=== PATIENT | male | born 1935 | race Caucasian/White ===

== ENCOUNTER 2017-09-20 18:25 | Emergency (ER) | payer MEDICARE, BC ==
[2017-09-20] MEDS ORDERED: Lidocaine 1% 20 ML MDV ONE (19:26)
[2017-09-20] MEDS ORDERED: Bacitracin Zinc 1 Packet ONE (19:45)
--- NOTE | 2017-09-20 20:10 | RAD ---
CHEST PA AND LATERAL: History: 82-year-old male with left shoulder pain. Comparison: 12-17-11 FINDINGS: Atherosclerosis of the aorta. No confluent pneumonia, overt edema, or pleural effusion. IMPRESSION: No acute intrathoracic disease. Atherosclerosis of the aorta with ectasia. Stable from prior study. POS: DODIE
--- NOTE | 2017-09-20 20:11 | RAD ---
LEFT SHOULDER THREE VIEWS: History: 82-year-old male with left shoulder pain following an injury. FINDINGS: AC joint arthrosis changes are noted, somewhat narrowed acromial humeral space suggesting chronic rot ator cuff injury. No acute fracture or dislocation. IMPRESSION: Degenerative changes without fracture or dislocation. POS: DODIE
--- NOTE | 2017-09-20 20:13 | RAD ---
LEFT HAND THREE VIEWS: History: 82-year-old male with left hand pain following an injury. FINDINGS: Arthrosis changes are noted of the hand and wrist including the trapezium first metacarpal joint with some extensive hypertrophic osteophytosis. No evidence for acute fracture or dislocation. IMPRESSION: Arthrosis and degenerative changes without acute fracture or dislocation. POS: MARGIE
== END 2017-09-20 19:56 | disposition home or self-care (01) ==
LOC: SCSER 18:25
DX: S61.412A Laceration without foreign body of left hand, initial encounter (principal); S20.219A Contusion of unspecified front wall of thorax, initial encounter; E78.5 Hyperlipidemia, unspecified; D89.89 Other specified disorders involving the immune mechanism, not elsewhere classified; W17.89XA Other fall from one level to another, initial encounter
CPT/HCPCS: 12002; 71020; J2001

== ENCOUNTER 2017-09-28 17:36 | Emergency (ER) | payer MEDICARE, BC | END 2017-09-28 18:21 | disposition home or self-care (01) | LOC: SCSER 17:36 | DX: S61.412D Laceration without foreign body of left hand, subsequent encounter (principal); E78.5 Hyperlipidemia, unspecified; I77.6 Arteritis, unspecified ==

== ENCOUNTER 2017-10-02 16:24 | Emergency (ER) | payer MEDICARE, BC | END 2017-10-02 17:17 | disposition home or self-care (01) | LOC: SCSER 16:24 | DX: S61.412D Laceration without foreign body of left hand, subsequent encounter (principal); E78.5 Hyperlipidemia, unspecified; W18.30XD Fall on same level, unspecified, subsequent encounter ==

== ENCOUNTER 2019-03-28 12:56 | Outpatient (CLI) | payer MEDICARE, BC ==
--- NOTE | 2019-03-28 14:07 | RAD ---
Exam: Chest one view HISTORY:Preoperative exam for Comparison: 02/01/2019 FINDINGS: Cardiac silhouette:Normal heart size. Aorta: Elongation of the thoracic aorta. Pulmonary vessels: Normal Costophrenic angles: Clear LUNGS: No masses or consolidation. Pneumothorax: None Osseous abnormalities: None IMPRESSION: No acute cardiopulmonary process.
[2019-03-28 14:40] LABS: #Eosinphils 0.1 thou/uL (0.0-0.7); #Lymphocytes 1.4 thou/uL (1.20-3.40); #Monocytes 0.6 thou/uL (0.11-0.59); #Neutrophils 4.2 thou/uL (1.40-6.50); %Basophils 0.5 % (0.0-1.0); %Eosinophils 1.9 % (0.0-10.0); %Lymphocytes 22.7 % (21.0-51.0); Hemoglobin 13.6 g/dL (14.0-18.0); Mean Corpuscular HGB CONC 33.4 g/dL (32.0-36.0); Platelet Count 219 thou/uL (130-400); RBC Distribution Width 11.9 % (11.5-14.5); Red Blood Cell (RBC) Count 4.53 mill/uL (4.70-6.10); White Blood Cell (WBC) Count 6.4 thou/uL (4.8-10.8)
[2019-03-28 15:05] LABS: ALT (SGPT) 13 U/L (8-55); AST (SGOT) 15 U/L (5-34); Albumin 4.5 g/dL (3.4-4.8); Alkaline Phosphatase 44 U/L (40-150); Anion Gap 13 mmol/L (10-20); BUN (Urea Nitrogen) 15 mg/dL (8.4-25.7); Bilirubin, Total 0.6 mg/dL (0.2-1.2); Calc. Creatinine Clearance 0 mL/min (70-130); Calcium 10.3 mg/dL (7.8-10.44); Carbon Dioxide 25 mmol/L (23-31); Chloride 106 mmol/L (98-107); Estimated GFR-MDRD 57; Globulin 2.6 g/dL (2.4-3.5); Glucose 100 mg/dL (83-110); Potassium 4.6 mmol/L (3.5-5.1); Protein, Total 7.1 g/dL (5.8-8.1); Sodium 139 mmol/L (136-145)
== END 2019-03-28 12:57 | disposition home or self-care (01) ==
LOC: LABBT 12:56
PROVIDERS: ATTEND Internal Medicine Cardiovascular Disease
DX: Z01.818 Encounter for other preprocedural examination (principal); I35.0 Nonrheumatic aortic (valve) stenosis; R94.39 Abnormal result of other cardiovascular function study
CPT/HCPCS: 71045; 80053; 85025; 93005; 93010

== ENCOUNTER 2019-04-05 05:46 | Inpatient (IN) | payer MEDICARE, BC ==
[2019-04-05] MEDS ORDERED: Heparin 10,000 UNITS/1 ML VIAL ONE (06:41)
[2019-04-05] MEDS ORDERED: Lidocaine 1% (PF) 30 ML VIAL ONE ×2 (06:42→07:35)
[2019-04-05] MEDS ORDERED: Fentanyl 100 MCG/2 ML VIAL ONE (07:15)
[2019-04-05] MEDS ORDERED: Midazolam HCl 2 mg/2 ml Vial ONE (07:15)
[2019-04-05] MEDS ORDERED: Protamine Sulfate 50 MG/5 ML VIAL ONE (07:20)
[2019-04-05] MEDS ORDERED: Sodium Chloride 0.9% 200 ML IV PRN (08:55)
[2019-04-05] MEDS ORDERED: Nitroglycerin 0.4 MG TAB (25 Tab Bottle) SL PRN (08:55)
[2019-04-05] MEDS ORDERED: Sodium Chloride 0.9% 1,000 ML IV SCH (09:00)
[2019-04-05] MEDS ORDERED: Iopamidol 370 76% 100 ML VIAL ONE (10:15)
[2019-04-05] MEDS ORDERED: Iopamidol 370 76% 50 ML VIAL FS ONE (10:15)
[2019-04-05] MEDS ORDERED: Acetaminophen 500 MG TAB ONE (10:17)
[2019-04-05] MEDS ORDERED: Ondansetron PF 4 MG/2 ML Vial ONE (10:58)
[2019-04-05] MEDS ORDERED: Acetaminophen 500 MG TAB PO PRN ×2 (11:14→11:15)
[2019-04-05] MEDS ORDERED: Ondansetron PF 4 MG/2 ML Vial IVP SCH (11:30)
[2019-04-05] MEDS: Ezetimibe 10 MG TAB PO SCH (19:12)
[2019-04-05] MEDS: Cyanocobalamin (Vitamin B-12) 1,000 MCG TAB PO SCH (19:12)
[2019-04-05] MEDS: Fluticasone Propionate Nasal Spray 16 gm Bottle NASAL SCH (19:12)
[2019-04-05] MEDS: Aspirin 81 mg Enteric Coated Tablet PO SCH (19:12)
[2019-04-05] MEDS: Carvedilol 3.125 MG TAB PO SCH (19:14)
--- NOTE | 2019-04-06 00:52 | HP ---
May also at times go by H.T. HISTORY: Mr. Barr is an 84-year-old white male, who is coming for cardiac catheterization. He was initially seen in November 2004 when he presented with chest discomfort. At that time, he was on Zocor 40 at bedtime for hypercholesterolemia. Echocardiogram revealed ejection fraction of 50% to 55%. He underwent Cardiolite treadmill testing exercised for 5 minutes and there were no ST-segment changes. Cardiolite revealed no evidence of ischemia. He was seen again in 2009. An echocardiogram revealed ejection fraction of 30% to 35% with evidence for diastolic dysfunction. Repeat echo in July 2011 revealed that his ejection fraction had improved to 60% to 65%. He also had mild aortic stenosis with a peak gradient of 23 mmHg, mean gradient was 14 mmHg. He also had history of hypercholesterolemia and statin drug was stopped due to the thought that this caused him to have lower extremity vasculitis. He has never been back on the statin since that time. He is continued to be followed for his aortic stenosis with periodic echos and his gradient has consistently increased. However, he has been relatively asymptomatic, except for lower extremity edema, which is attributed to vasculitis. He has ultimately been placed on Repatha first prescribed in August 2018, however, I do not think he was able to get it until November 2018. This has brought his LDL down from approximately 150 to 56. He was seen again on February 27, 2019, for preop evaluation for the left shoulder surgery by Dr. Tristan. Echocardiogram revealed ejection fraction of 50% to 55 % with mild mitral regurgitation, evidence for diastolic dysfunction, severe aortic stenosis with a peak gradient of 124, mean gradient of 84, aortic valve area of 0.69 sq cm, moderate aortic regurgitation and mild tricuspid regurgitation. He underwent cardiac PET scan which revealed mild proximal to distal inferior wall fixed defect, likely needed to undergo cardiac catheterization for better assessment of his aortic valve. Risks of catheterization have discussed including , myocardial infarction, dye reaction, vascular injury, CVA, transfusion, limb loss, renal loss, etc. He agrees to proceed. 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 OPERATIONS: Left hip replacement. SOCIAL HISTORY: He does not smoke. He occasionally drinks wine. 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 REVIEW OF SYSTEMS: Otherwise, unremarkable. PHYSICAL EXAMINATION: VITAL SIGNS: 139/61 and pulse of 64. HEENT: PERRL. NECK: Supple. CHEST: Clear. CARDIAC: S1 and S2 normal without any S3 or S4. There is a 3/6 systolic murmur heard at the left sternal border. ABDOMEN: Normal bowel sounds without tenderness or organomegaly. EXTREMITIES: Reveal 1+ pretibial edema. NEUROLOGIC: Grossly intact. LABORATORIES: Pending. IMPRESSION: 1. Preoperative cardiovascular examination for left shoulder surgery. 2. Abnormal stress test with mild proximal and distal inferior wall ischemia. 3. Evidence of cardiomyopathy in 2009 which appeared to have resolved. 4. Severe aortic stenosis. 5. Moderate aortic insufficiency. 6. Diastolic dysfunction. 7. Hypercholesterolemia, which has dramatically improved and is well controlled with Repatha and Zetia. 8. Hypertension. 9. Lower extremity vasculitis, felt to be due to statins. PLAN: Patient will undergo cardiac catheterization and indicated procedures. He agrees to proceed. I am quite concerned about his severe aortic stenosis with peak gradient 128 mmHg. However, he is relatively asymptomatic, except for lower extremity edema. Job ID: [id number] [facility]
[2019-04-06 06:08] LABS: Anion Gap 8 mmol/L (10-20); BUN (Urea Nitrogen) 16 mg/dL (8.4-25.7); Calc. Creatinine Clearance 64 mL/min (70-130); Calcium 9.5 mg/dL (7.8-10.44); Carbon Dioxide 27 mmol/L (23-31); Chloride 108 mmol/L (98-107); Estimated GFR-MDRD 64; Glucose 89 mg/dL (83-110); Potassium 4.2 mmol/L (3.5-5.1); Sodium 139 mmol/L (136-145)
[2019-04-06] MEDS ORDERED: Tamsulosin HCl 0.4 MG CAP PO SCH (09:00)
[2019-04-06] MEDS: predniSONE 5 MG TAB PO SCH (10:33)
[2019-04-06] MEDS: Carvedilol 3.125 MG TAB PO SCH ×2 (10:33→17:30)
[2019-04-06] MEDS: Aspirin 81 mg Enteric Coated Tablet PO SCH (10:34)
[2019-04-06] MEDS: Cyanocobalamin (Vitamin B-12) 1,000 MCG TAB PO SCH (10:34)
[2019-04-06] MEDS: Ezetimibe 10 MG TAB PO SCH (10:34)
[2019-04-06] MEDS: Fluticasone Propionate Nasal Spray 16 gm Bottle NASAL SCH (10:35)
[2019-04-06] MEDS ORDERED: Communication Order-Pharmacy FS SCH (15:20)
[2019-04-06 15:50] LABS: PTT 26.6 SEC (22.9-36.1); Prothrombin Time 12.8 SEC (12.0-14.7)
--- NOTE | 2019-04-06 15:59 | CT ---
CTA CHEST WITH CONTRAST: HISTORY: Assess aorta for aortic valve repair. COMPARISON: None. TECHNIQUE: Multiple contiguous axial images were obtained in a CTA chest with contrast, and 3D sagittal and damon nal MIP reformats were performed. FINDINGS: The heart is normal in size. There are calcifications in the coronary arteries and aortic valve. Th e aorta is normal in caliber. The sinus of Valsalva measures 3.8 cm in greatest dimension. The asc ending aorta measures 4 cm in greatest dimension, at the level of the main pulmonary artery. The victor hugo cending aorta is normal in caliber. No hilar or mediastinal lymphadenopathy is seen. No pneumothorax or pleural effusion is seen. No focal infiltrates are seen in the lungs. No suspici ous pulmonary nodules are present. Degenerative changes are seen in the spine. The visualized subdiaphragmatic structures are unremarka ble. IMPRESSION: Normal caliber aorta with heavily calcified aortic valve. POS: [facility]
--- NOTE | 2019-04-06 22:05 | CON ---
DATE OF CONSULTATION: 04/06/2019 REASON FOR CONSULTATION: Evaluate the patient for AVR, CABG. HISTORY OF PRESENT ILLNESS: Mr. Barr is an 84-year-old gentleman who was being cleared for a left shoulder surgery by Dr. Lewis. He has a longstanding history of a murmur. His echocardiogram shows preserved left ventricular function at this time. He had a gradient of over 100. He underwent cardiac catheterization, which shows moderate to severe right coronary stenosis with multifocal lesions. I have been asked to see him for AVR with a bioprosthetic valve and CABG with a single vein graft to his distal right coronary artery. PAST MEDICAL HISTORY: 1. History of venous insufficiency. 2. Vasculitis related to statin use. 3. Dyslipidemia. 4. Neuropathy in his feet. 5. Severe aortic stenosis. 6. Nonischemic cardiomyopathy, which has resolved. 7. Hypertension. PAST SURGICAL HISTORY: Left hip replacement. SOCIAL HISTORY: He does not use tobacco. Occasionally drinks wine. 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 REVIEW OF SYSTEMS: A 10-point review of systems is performed, is negative except as above. PHYSICAL EXAMINATION: GENERAL: Well-developed, well-nourished gentleman, resting comfortably on the telemetry unit. VITAL SIGNS: His height is 6 feet, weight is 198 pounds. His pulse is 68 and regular. Blood pressure is 139/75. HEENT: Sclerae are nonicteric. Pupils are equal and round bilaterally. NECK: Supple without bruit. CHEST: Clear bilaterally. HEART: Rhythm is regular. He has a high-pitched systolic ejection murmur heard throughout his precordium. ABDOMEN: Soft and nontender. EXTREMITIES: No cyanosis, clubbing, or edema. VASCULAR: He has palpable carotid, radial femoral, popliteal, dorsalis pedis, and posterior tibial pulses bilaterally. VENOUS: There are no venous varicosities or venous stasis change. PSYCHIATRIC: He is awake, alert, and oriented to person, place, and time. LABORATORY DATA: Of note, hemoglobin 13.6, platelet count 219,000. Potassium is 3.9, creatinine is 1.09. Chest x-ray shows no dominant lung mass. We have CT'ed his chest which shows annulus diameter of approximately 25 with heavily calcified aortic valve. His aorta measures 4.1 cm in maximal diameter with minimal calcium in his aorta. The proximal right and left coronary arteries are heavily calcified. ASSESSMENT AND PLAN: Severe aortic stenosis, single-vessel coronary artery disease. I have discussed aortic valve replacement with bioprosthetic valve and coronary artery bypass grafting with a single vein graft to his distal right or proximal PDA. He is agreeable to proceed. Risks, benefits, and options have been outlined. We will make plans for surgery tomorrow. Job ID: [id number]
[2019-04-07] MEDS: Carvedilol 3.125 MG TAB PO SCH (05:17)
[2019-04-07] MEDS ORDERED: Albumin 5% 500 ML ONE ×2 (06:41→12:51)
[2019-04-07] MEDS ORDERED: Bupivacaine HCl 0.5%/Epinephrine 1:200,000/PF 30 ml Vial ONE (06:41)
[2019-04-07] MEDS ORDERED: Dexamethasone 4 mg/ml Vial ONE (06:41)
[2019-04-07] MEDS ORDERED: Hydrocortisone Sod Succ/PF 100 mg/2 ml Vial ONE (09:17)
[2019-04-07] MEDS ORDERED: Fentanyl 250 MCG/5 ML VIAL ONE (09:17)
[2019-04-07] MEDS ORDERED: Midazolam HCl 5 mg/5 ml Vial ONE (09:17)
[2019-04-07] MEDS ORDERED: Phenylephrine HCL 10 MG/ML VIAL ONE ×2 (09:17→12:51)
[2019-04-07] MEDS ORDERED: Vancomycin HCl 1.5 GM in Sodium Chloride 0.9% 250 ML 300 ML IVPB SCH (09:30)
[2019-04-07] MEDS ORDERED: CEFAZOLIN 1 GM VIAL SLOW IVP SCH (10:00)
[2019-04-07] MEDS ORDERED: Heparin 10,000 UNITS/1 ML VIAL 30,000 UNITS in Sodium Chloride 0.9% 1,000 ML FS SCH (10:30)
[2019-04-07] MEDS ORDERED: Aminocaproic Acid 5 GM/20 ML VIAL ONE (13:58)
[2019-04-07] MEDS ORDERED: Thrombin 5000 UNITS/5 ML VIAL ONE (13:58)
[2019-04-07] MEDS ORDERED: Sodium Bicarb 50 MEQ/50 ML VIAL ONE (13:58)
[2019-04-07] MEDS ORDERED: Rocuronium Bromide 10 MG/ML (10ML VIAL) ONE (13:58)
[2019-04-07] MEDS ORDERED: Potassium Chloride 60 MEQ/30 ML VIAL ONE (13:58)
[2019-04-07] MEDS ORDERED: Mannitol 12.5 GM/50 ML ONE (13:58)
[2019-04-07] MEDS ORDERED: Calcium Chloride 1 GM/10 ML Abboject SYRINGE ONE (13:58)
[2019-04-07] MEDS ORDERED: Lidocaine 2% PF 100 mg/5 ml Syringe ONE (13:58)
[2019-04-07] MEDS ORDERED: Heparin 5,000 UNITS/ML VIAL ONE (13:58)
[2019-04-07] MEDS ORDERED: Nitroglycerin 50 MG/250 ML BOT ONE (13:58)
[2019-04-07] MEDS ORDERED: Protamine Sulfate 250 MG/25 ML VIAL ONE (13:58)
[2019-04-07] MEDS ORDERED: Papaverine 60 MG/2 ML VIAL ONE (13:58)
[2019-04-07] MEDS ORDERED: Heparin 30,000 units/30 ml VIAL ONE (13:58)
[2019-04-07] MEDS ORDERED: Magnesium 5 GM/10 ML VIAL ONE (13:58)
[2019-04-07] MEDS ORDERED: ePHEDrine 50 MG/ML VIAL ONE (13:58)
[2019-04-07] MEDS ORDERED: Cardioplegic Soln 1,000 ML BAG ONE (13:58)
[2019-04-07] MEDS ORDERED: PHENYLEPHRINE-NS 100 MCG/ML 10 ML SYRINGE ONE (13:58)
[2019-04-07] MEDS ORDERED: Fentanyl 100 MCG/2 ML VIAL SLOW IVP PRN (15:09)
[2019-04-07] MEDS ORDERED: Guaifenesin DM 100-10/5 ML UDCUP PO PRN (15:09)
[2019-04-07] MEDS ORDERED: hydrALAZINE 20 MG/ML VIAL SLOW IVP PRN (15:09)
[2019-04-07] MEDS ORDERED: Morphine 4 MG/ML VIAL SLOW IVP PRN (15:09)
[2019-04-07] MEDS ORDERED: Bisacodyl 10 MG SUPP PR PRN (15:09)
[2019-04-07] MEDS ORDERED: Ondansetron PF 4 MG/2 ML Vial IVP PRN (15:09)
[2019-04-07] MEDS ORDERED: Nitroglycerin 50 MG/250 ML BOT 250 ML IVPB PRN (15:09)
[2019-04-07] MEDS ORDERED: Norepinephrine 8 MG/0.9% NS 250 ML IVPB PRN (15:09)
[2019-04-07] MEDS ORDERED: Bisacodyl 5 MG TAB PO PRN (15:09)
[2019-04-07] MEDS ORDERED: Hetastarch 6% 500 ML 500 ML IVPB PRN (15:09)
[2019-04-07] MEDS ORDERED: Phenylephrine 10 MG/NS 250 ML 250 ML IVPB PRN (15:09)
[2019-04-07] MEDS ORDERED: Mag-Al 1200 mg/1200 mg/30 ML UDCUP PO PRN (15:09)
[2019-04-07] MEDS ORDERED: HYDROcodone/Acetaminophen 5/325 mg Tablet PO PRN ×2 (15:09)
[2019-04-07] MEDS ORDERED: Magnesium 2 GM/50 ML 2 GM in Premix Bag 1 BAG IVPB SCH (15:15)
[2019-04-07] MEDS ORDERED: Hydrocortisone Sod Succ/PF 100 mg/2 ml Vial IVP SCH ×2 (15:15→18:00)
[2019-04-07] MEDS ORDERED: Dextrose 5% in Water 1,000 ML IV PRN (15:18)
[2019-04-07] MEDS ORDERED: Dextrose 50% Abboject 50 ML SYRINGE SLOW IVP PRN (15:18)
[2019-04-07 15:19] LABS: Base Excess (BEa) -3.8 mEq/L (-2.0 to +3.0); CO2 Tension 37.2 mmHg (35.0-45.0); Carboxyhemoglobin (COHb) 0.9 gm% (0.0-3.0); Hemoglobin (Hb) 10.5 g/dL (14.0-18.0); O2 Tension (PaO2) 94.2 mmHg (> 60.0); Potassium - ABG Lab 3.82 mmol/L (3.70-5.30); pH, Arterial 7.37 (7.35-7.45)
[2019-04-07 15:23] LABS: Puncture Site LINE
[2019-04-07] MEDS ORDERED: Norepinephrine 4 MG/4 ML VIAL ONE ×2 (15:30→15:42)
[2019-04-07 15:34] LABS: INR-International Normal Ratio 1.5; PTT 35.5 SEC (22.9-36.1); Prothrombin Time 17.9 SEC (12.0-14.7)
[2019-04-07 15:39] LABS: #Basophils 0.1 thou/uL (0.0-0.2); #Eosinphils 0.3 thou/uL (0.0-0.7); #Monocytes 1.3 thou/uL (0.11-0.59); #Neutrophils 11.7 thou/uL (1.40-6.50); %Basophils 0.5 % (0.0-1.0); %Eosinophils 1.7 % (0.0-10.0); %Monocytes 8.4 % (0.0-10.0); %Neutrophils 76.4 % (42.0-75.0); Mean Corpuscular HGB CONC 32.8 g/dL (32.0-36.0); Mean Corpuscular Hemoglobin 29.6 pg (27.0-31.0); Mean Corpuscular Volume 90.3 fL (78.0-98.0); Mean Platelet Volume 7.4 fL (7.4-10.4); Platelet Count 116 thou/uL (130-400); RBC Distribution Width 11.9 % (11.5-14.5); Red Blood Cell (RBC) Count 3.38 mill/uL (4.70-6.10); White Blood Cell (WBC) Count 15.3 thou/uL (4.8-10.8)
[2019-04-07] MEDS: Insulin Regular 300 UNITS/3 ML VIAL SC PRN ×3 (15:49→23:56)
[2019-04-07 15:51] LABS: MDiff Complete? YES; Ovalocytes SLIGHT = 2-5 cells (100X) (0-1/hpf); Platelet Morphology Comment Appears Decreased; Polychromasia SLIGHT = 2-3 cells (100X) (0-2/hpf); Tear Drops SLIGHT = 2-5 cells (100X) (0-1/hpf)
[2019-04-07] MEDS: D5 1/2 NS w/20 mEq KCL 1,000 ML IV SCH (15:52)
[2019-04-07 15:53] LABS: Anion Gap 11 mmol/L (10-20); BUN (Urea Nitrogen) 15 mg/dL (8.4-25.7); Calc. Creatinine Clearance 77 mL/min (70-130); Calcium 7.6 mg/dL (7.8-10.44); Carbon Dioxide 21 mmol/L (23-31); Chloride 112 mmol/L (98-107); Estimated GFR-MDRD 80; Glucose 128 mg/dL (83-110); Potassium 3.9 mmol/L (3.5-5.1); Sodium 140 mmol/L (136-145)
--- NOTE | 2019-04-07 16:42 | OP ---
DATE OF PROCEDURE: 04/07/2019 PREOPERATIVE DIAGNOSES: Aortic stenosis/coronary artery disease/hypertension/hyperlipidemia/vasculitis requiring chronic steroid treatment. POSTOPERATIVE DIAGNOSES: Aortic stenosis/coronary artery disease/hypertension/hyperlipidemia/vasculitis requiring chronic steroid treatment. PROCEDURES PERFORMED: 1. Aortic valve replacement #23 Magna bioprosthetic valve. 2. Coronary artery bypass grafting x1 - reverse saphenous vein to 3.0 mm distal right coronary artery. ANESTHESIA: General endotracheal - Dr. Jefe Mack. PUMP TIME: 106. CROSS-CLAMP TIME: 83. LOW CORE TEMPERATURE: 34 degrees Celsius. WASH OIL PUMP OPERATOR: Shraddha Diallo. DRAINS: 24-Yi chest tubes x2. DRIPS: None. TRANSFUSIONS: None. DESCRIPTION OF PROCEDURE: After consent was obtained, the patient was brought to the operating room, placed in supine position on the operating table. Appropriate lines and monitors were placed and general endotracheal anesthesia induced. Chest and legs were prepped and draped in usual sterile fashion. Greater saphenous vein was harvested from the left lower thigh through skip incisions. Wounds irrigated and closed in layers. Median sternotomy was performed. The patient was systemically heparinized. Aortic and atrial cannulations were performed. After adequate heparinization, retrograde prime was performed. The patient was placed on cardiopulmonary bypass. Distal target was marked. Aortic cross-clamp was applied and antegrade sanguineous cardioplegic arrest was obtained. 1 L of antegrade cold [place] cardioplegia was given. Topical cold solution was used. Left ventricular sump drain was placed to the right superior pulmonary vein. Reverse saphenous vein was anastomosed to distal RCA in an end-to-side fashion with running 7-0 Prolene suture. 300 mL of antegrade cold cardioplegia was given. Carbon dioxide was infused in the pericardial well. Transverse hockey-stick aortotomy was performed. Aortic valve was inspected. There was a 3 leaflet valve that was heavily calcified. Calcium extended upon to the aortic wall and also down onto the anterior leaflet of the mitral valve. Leaflets were debrided and the anulus decalcified. There was calcium at the orifice of the left main that was debrided. The anterior leaflet of the mitral valve was debrided. Valve measured as a 23 Magna. Valve was brought into the operative field and washed. Pledgeted 2-0 Ethibond sutures were placed around the anulus. Sutures were then passed through the sewing ring of the valve. The valve was seated. Valve was secured with Cor-Knots and seated nicely. Aortotomy was closed in a running fashion with dual layer pledgeted 4-0 Prolene suture. Punch site was created for proximal anastomosis. Saphenous vein was anastomosed to the aorta with running 6-0 Prolene suture. De-airing maneuvers were then performed, both through the aortic root and the left ventricular sump drain. After adequate de-airing via LIU, the cross-clamp was removed with the patient in Trendelenburg position. There was bleeding from the proximal anastomosis, which was closed with 6-0 Prolene suture and pledgeted 6-0 Prolene suture. A pledgeted 4-0 Prolene was placed to close the aortic root vent site. The left ventricular sump drain was removed and its pursestring suture secured. The patient was warmed and weaned from cardiopulmonary bypass. After resumption of sinus rhythm, good hemodynamics, and temperature greater than 36.5, bypass was discontinued. Transfusion was given. Second 24-Yi chest tube was placed in mediastinum. Decannulation was performed, and pursestring suture was secured. Aortic cannulation site was reinforced with pledgeted 4-0 prolene suture. The quality of all his vessels including the saphenous vein appeared to be compromised from his chronic steroid use. Everything was very fragile. There were lots of bleeding around the needle holes. FloSeal and SurgiSeal and multiple sutures were used to obtain hemostasis. After adequate hemostasis had been obtained, sternum was treated with vancomycin paste and closed with #7 wire, three in the manubrium and one in the distal sternum. Four zip ties were placed in the body of the sternum. The sternum was closed and wires twisted after treatment with platelet rich plasma. Wound was treated with platelet rich plasma, irrigated and closed in multiple layers. Needle, sponge, and instrument counts were all reported as correct at the end of the procedure. The patient tolerated the procedure well, transferred to intensive care unit in stable, but critical condition. Job ID: [id number]
--- NOTE | 2019-04-07 17:17 | RAD ---
CHEST 1 VIEW: Date: 04/07/19 HISTORY: Recent postop open heart. COMPARISON: 03/28/19. FINDINGS: Recent postop midline sternotomy. Endotracheal tube, chest tubes, and right central line in place. De creased inspiratory effort with some parenchymal changes in the bases, probably representing some sub segmental atelectasis. No significant pneumothorax. IMPRESSION: Less inspiratory effort with bibasilar parenchymal changes, probably subsegmental atelectasis. No sig nificant new process. No pneumothorax. Continued short-term follow-up for clearing or stability. POS: [facility]
[2019-04-07] MEDS: predniSONE 5 MG TAB PO SCH (18:07)
[2019-04-07] MEDS: Ketorolac Tromethamine 30 MG/ML VIAL IVP SCH ×2 (18:15→23:56)
[2019-04-07] MEDS: CEFAZOLIN 2 GM in Premix Bag 1 BAG IVPB SCH (18:34)
[2019-04-07 20:41] LABS: Actual Bicarbonate (HCO3a) 21.5 mEq/L (22-28); CO2 Tension 36.1 mmHg (35.0-45.0); Calcium, Ionized 1.04 mmol/L (1.12-1.30); Carboxyhemoglobin (COHb) 1.4 gm% (0.0-3.0); Hemoglobin (Hb) 8.4 g/dL (14.0-18.0); O2 Tension (PaO2) 95.3 mmHg (> 60.0); Potassium - ABG Lab 4.23 mmol/L (3.70-5.30); pH, Arterial 7.39 (7.35-7.45)
[2019-04-07 20:48] LABS: ALV-art Gradient 73.475 (0-20); Puncture Site ALINE
[2019-04-07] MEDS: Vancomycin HCl 1.5 GM in Sodium Chloride 0.9% 250 ML 300 ML IVPB SCH (21:11)
[2019-04-07] MEDS: Famotidine/PF 20 mg/2ml Vial SLOW IVP SCH (21:12)
[2019-04-07 21:29] LABS: Potassium 4.4 mmol/L (3.5-5.1)
[2019-04-08] MEDS: CEFAZOLIN 2 GM in Premix Bag 1 BAG IVPB SCH ×2 (00:57→09:00)
[2019-04-08] MEDS: Insulin Regular 300 UNITS/3 ML VIAL SC PRN (03:37)
[2019-04-08 03:45] LABS: #Lymphocytes 0.6 thou/uL (1.20-3.40); %Basophils 0.3 % (0.0-1.0); %Eosinophils 0.1 % (0.0-10.0); %Lymphocytes 6.9 % (21.0-51.0); %Monocytes 11.8 % (0.0-10.0); Hemoglobin 7.5 g/dL (14.0-18.0); Mean Corpuscular HGB CONC 32.9 g/dL (32.0-36.0); Mean Corpuscular Hemoglobin 29.8 pg (27.0-31.0); Mean Corpuscular Volume 90.6 fL (78.0-98.0); Mean Platelet Volume 6.9 fL (7.4-10.4); Platelet Count 102 thou/uL (130-400); Red Blood Cell (RBC) Count 2.53 mill/uL (4.70-6.10); White Blood Cell (WBC) Count 8.6 thou/uL (4.8-10.8)
[2019-04-08 04:00] LABS: Anion Gap 9 mmol/L (10-20); BUN (Urea Nitrogen) 20 mg/dL (8.4-25.7); Calc. Creatinine Clearance 65 mL/min (70-130); Calcium 7.2 mg/dL (7.8-10.44); Carbon Dioxide 20 mmol/L (23-31); Chloride 115 mmol/L (98-107); Estimated GFR-MDRD 69; Glucose 157 mg/dL (83-110); Potassium 4.2 mmol/L (3.5-5.1); Sodium 140 mmol/L (136-145)
[2019-04-08] MEDS: Ketorolac Tromethamine 30 MG/ML VIAL IVP SCH ×4 (05:40→23:41)
--- NOTE | 2019-04-08 08:28 | PDOC.CTH ---
Cardiology Progress Note - Subjective Doing well. No complaints. CT still in place. - Objective Vital Signs Temp Pulse Pulse Resp BP Pulse Ox 04/08/19 07:24 96 04/08/19 06:15 98.0 F 82 16 111/66 100 04/08/19 04:35 98.0 F 82 15 104/64 100 04/08/19 04:21 100 04/08/19 04:20 98.4 F 79 18 88/57 L 100 04/08/19 04:00 98.2 F 04/08/19 00:30 98.1 F 72 12 98/62 100 04/08/19 00:00 98.1 F 04/07/19 22:00 98.2 F 75 13 101/65 100 04/07/19 21:43 98.2 F 74 13 120/67 100 04/07/19 20:49 100 04/07/19 20:42 100 04/07/19 20:30 86 19 100 Weight 200 lb 2.876 oz 04/07/19 04/08/19 04/09/19 06:59 06:59 06:59 Intake Total 240 4721.2 Output Total 2455 Balance 240 2266.2 - Physical Examination General/Neuro: alert & oriented x3, NAD Neck: no JVD present Lungs: unlabored respirations Heart: PMI normal, RRR Abdomen: NT/ND, soft - Labs Result Diagrams: 04/08/19 03:30 04/08/19 03:30 - Assessment/Plan CAD s/p CABG , AVR Transfuse CT per CV surgery Pt maintaining SR Hold BB for now Statin
[2019-04-08] MEDS: Vancomycin HCl 1.5 GM in Sodium Chloride 0.9% 250 ML 300 ML IVPB SCH (08:59)
[2019-04-08] MEDS: Famotidine/PF 20 mg/2ml Vial SLOW IVP SCH ×2 (09:00→21:00)
[2019-04-08] MEDS: Magnesium 2 GM/50 ML 2 GM in Premix Bag 1 BAG IVPB SCH (09:01)
[2019-04-08] MEDS: Aspirin 325 MG TAB PO SCH (09:34)
--- NOTE | 2019-04-08 09:38 | RAD ---
CHEST 1 VIEW: Date: 04/08/19 INDICATION: Status post open heart surgery. COMPARISON: Prior exam dated 04/07/19. FINDINGS: The patient has been extubated. Right subclavian central venous catheter is stable. Two more mediasti nal drains are still present. Lungs are clear. There is improved aeration of both lower lobes. No pne umothorax is evident. There are tiny residual pleural effusions bilaterally. IMPRESSION: 1. Interval extubation. 2. Improved aeration of both lower lobes. 3. Stable cardiomegaly. 4. Stable mild bilateral pleural effusions. POS: BH
[2019-04-08] MEDS: Fentanyl 100 MCG/2 ML VIAL SLOW IVP PRN ×2 (11:08→15:35)
[2019-04-08] MEDS: D5 1/2 NS w/20 mEq KCL 1,000 ML IV SCH ×2 (16:42→21:16)
[2019-04-08] MEDS ORDERED: Digoxin 0.5 MG/2 ML AMP SLOW IVP SCH ×2 (19:45→20:00)
[2019-04-08] MEDS ORDERED: Sodium Chloride 0.9% 500 ML IV SCH (21:15)
[2019-04-09 05:08] LABS: Anion Gap 6 mmol/L (10-20); BUN (Urea Nitrogen) 20 mg/dL (8.4-25.7); Calc. Creatinine Clearance 76 mL/min (70-130); Calcium 7.3 mg/dL (7.8-10.44); Carbon Dioxide 22 mmol/L (23-31); Chloride 113 mmol/L (98-107); Estimated GFR-MDRD 77; Glucose 118 mg/dL (83-110); Potassium 4.1 mmol/L (3.5-5.1); Sodium 137 mmol/L (136-145)
[2019-04-09 05:34] LABS: Band 5 % (5-11); Eosinophils 1 % (0-10); Hemoglobin 8.1 g/dL (14.0-18.0); Lymphocytes 17 % (21-51); MDiff Complete? YES; Mean Corpuscular HGB CONC 32.5 g/dL (32.0-36.0); Mean Corpuscular Hemoglobin 29.7 pg (27.0-31.0); Mean Corpuscular Volume 91.6 fL (78.0-98.0); Mean Platelet Volume 7.5 fL (7.4-10.4); Monocytes 12 % (0-10); Neutrophil 65 % (42-75); Platelet Count 112 thou/uL (130-400); Platelet Morphology Comment Appears Decreased; RBC Distribution Width 12.7 % (11.5-14.5); RBC Morphology Normal; Red Blood Cell (RBC) Count 2.73 mill/uL (4.70-6.10); White Blood Cell (WBC) Count 9.3 thou/uL (4.8-10.8)
[2019-04-09] MEDS: Ketorolac Tromethamine 30 MG/ML VIAL IVP SCH ×3 (06:16→18:16)
[2019-04-09] MEDS: Famotidine/PF 20 mg/2ml Vial SLOW IVP SCH ×2 (08:49→21:08)
[2019-04-09] MEDS: predniSONE 20 MG TAB PO SCH (08:49)
[2019-04-09] MEDS: Magnesium 2 GM/50 ML 2 GM in Premix Bag 1 BAG IVPB SCH (08:49)
[2019-04-09] MEDS: Artificial Tear Sol 15 ML BOT EA EYE PRN (08:53)
--- NOTE | 2019-04-09 09:06 | PDOC.CTH ---
Cardiology Progress Note - Subjective Feelsing better. One epsiode of afib last pt. Pt on levophed at the time. Now off. Pt in SR - Objective Vital Signs Temp 04/09/19 04:00 98.6 F 04/09/19 00:00 98.5 F Weight 204 lb 5.896 oz 04/08/19 04/09/19 04/10/19 06:59 06:59 06:59 Intake Total 4721.2 2422 Output Total 2455 1452 Balance 2266.2 970 - Physical Examination General/Neuro: alert & oriented x3, NAD Neck: carotid US brisk, no JVD present Lungs: unlabored respirations Heart: RRR Abdomen: NT/ND, soft Extremities: + femoral B - Labs Result Diagrams: 04/09/19 04:30 04/09/19 04:30 - Assessment/Plan CAD s/p CABG , AVR 04/09/2019 REC Wean off norepinephrine Afib likely secondary to pressors and post op afib Now SR Add BB in am when BP more stable 04/08/[address] per CV surgery Pt maintaining SR Hold BB for now Statin
[2019-04-09] MEDS: Aspirin 325 MG TAB PO SCH (10:38)
--- NOTE | 2019-04-09 12:00 | RAD ---
CHEST 1 VIEW: Date: 04/09/19 INDICATION: Status post open heart surgery. COMPARISON: Prior exam dated 04/08/19. FINDINGS: Mild cardiomegaly and pulmonary vascular congestion persist. Tiny bilateral pleural effusions are sim ilar appearing. Right-sided subclavian central venous catheter is unchanged. No pneumothorax is evident. IMPRESSION: Stable exam. POS: BH
[2019-04-09] MEDS ORDERED: Metolazone 5 MG TAB PO SCH (14:00)
[2019-04-09] MEDS ORDERED: Furosemide 40 MG/4 ML VIAL SLOW IVP SCH (16:00)
[2019-04-10] MEDS: Ketorolac Tromethamine 30 MG/ML VIAL IVP SCH ×4 (00:15→17:09)
[2019-04-10 06:00] LABS: #Eosinphils 0.3 thou/uL (0.0-0.7); #Lymphocytes 1.1 thou/uL (1.20-3.40); #Monocytes 1.3 thou/uL (0.11-0.59); #Neutrophils 6.2 thou/uL (1.40-6.50); %Basophils 0.3 % (0.0-1.0); %Eosinophils 3.5 % (0.0-10.0); %Lymphocytes 11.8 % (21.0-51.0); %Monocytes 14.5 % (0.0-10.0); %Neutrophils 69.9 % (42.0-75.0); Hemoglobin 9.5 g/dL (14.0-18.0); Mean Corpuscular HGB CONC 35.1 g/dL (32.0-36.0); Mean Corpuscular Hemoglobin 32.6 pg (27.0-31.0); Mean Corpuscular Volume 92.8 fL (78.0-98.0); Mean Platelet Volume 8.2 fL (7.4-10.4); Platelet Count 109 thou/uL (130-400); RBC Distribution Width 14.4 % (11.5-14.5); Red Blood Cell (RBC) Count 2.93 mill/uL (4.70-6.10); White Blood Cell (WBC) Count 8.6 thou/uL (4.8-10.8)
[2019-04-10] MEDS ORDERED: Alendronate Sodium 70 mg Tablet PO SCH (06:00)
[2019-04-10 06:02] LABS: Anion Gap 10 mmol/L (10-20); BUN (Urea Nitrogen) 20 mg/dL (8.4-25.7); Calc. Creatinine Clearance 72 mL/min (70-130); Calcium 7.8 mg/dL (7.8-10.44); Carbon Dioxide 22 mmol/L (23-31); Chloride 106 mmol/L (98-107); Estimated GFR-MDRD 71; Glucose 95 mg/dL (83-110); Potassium 3.9 mmol/L (3.5-5.1); Sodium 134 mmol/L (136-145)
[2019-04-10] MEDS: Potassium Chloride 20 MEQ/100 ML PREMIX BAG IVPB PRN (07:42)
[2019-04-10] MEDS: predniSONE 20 MG TAB PO SCH (07:43)
[2019-04-10] MEDS: Famotidine/PF 20 mg/2ml Vial SLOW IVP SCH ×2 (07:43→21:02)
[2019-04-10] MEDS: Aspirin 325 MG TAB PO SCH (07:43)
[2019-04-10] MEDS ORDERED: Carvedilol 3.125 MG TAB PO SCH (10:00)
--- NOTE | 2019-04-10 10:06 | RAD ---
CHEST 1 VIEW: Date: 04/10/19 INDICATION: Status post open heart surgery. COMPARISON: Prior exam dated 04/09/19. FINDINGS: Small bilateral pleural effusions, right greater than left persist. Right subclavian central venous c atheter is stable appearing. Mild cardiomegaly and mild pulmonary vascular congestion stable. No pneu mothorax is evident. IMPRESSION: Stable examination to prior dated 04/09/19. POS: BH
[2019-04-10] MEDS: Artificial Tear Sol 15 ML BOT EA EYE PRN ×3 (11:18→21:04)
--- NOTE | 2019-04-10 16:59 | EKG ---
Test Reason : CABG Blood Pressure : / mmHG Vent. Rate : 079 BPM Atrial Rate : 079 BPM P-R Int : 168 ms QRS Dur : 084 ms QT Int : 452 ms P-R-T Axes : 025 -34 018 degrees QTc Int : 518 ms Normal sinus rhythm Left axis deviation Prolonged QT Abnormal ECG Confirmed by DOUG BARCLAY ([id number]) on 04/10/2019 4:59:21 PM Referred By: Confirmed By:DOUG BARCLAY
--- NOTE | 2019-04-10 17:08 | EKG ---
Test Reason : STAT AFIB Blood Pressure : / mmHG Vent. Rate : 118 BPM Atrial Rate : 122 BPM P-R Int : 000 ms QRS Dur : 072 ms QT Int : 334 ms P-R-T Axes : 000 -07 045 degrees QTc Int : 468 ms Atrial fibrillation with rapid ventricular response Nonspecific T wave abnormality Abnormal ECG Confirmed by DOUG BARCLAY ([id number]) on 04/10/2019 5:07:31 PM Referred By: DENISHA Confirmed By:DOUG BARCLAY
[2019-04-10] MEDS: Carvedilol 3.125 MG TAB PO SCH (17:10)
[2019-04-10] MEDS ORDERED: Furosemide 40 MG/4 ML VIAL ONE (18:04)
[2019-04-10] MEDS ORDERED: Furosemide 40 MG/4 ML VIAL SLOW IVP SCH (18:15)
[2019-04-10] MEDS: Tamsulosin HCl 0.4 MG CAP PO SCH (21:03)
[2019-04-10] MEDS: Latanoprost 0.005% Ophth Soln 2.5 ml Bottle EA EYE SCH (21:13)
[2019-04-10] MEDS: Amiodarone 450 MG, Admixture Fee 1 EACH in Dextrose 5% in Water 250 ML IVPB SCH (23:57)
[2019-04-11] MEDS: Acetaminophen 325 MG TAB PO PRN ×2 (00:40→21:27)
[2019-04-11 05:11] LABS: Anion Gap 10 mmol/L (10-20); BUN (Urea Nitrogen) 22 mg/dL (8.4-25.7); Calc. Creatinine Clearance 75 mL/min (70-130); Calcium 8.1 mg/dL (7.8-10.44); Carbon Dioxide 24 mmol/L (23-31); Chloride 104 mmol/L (98-107); Estimated GFR-MDRD 75; Glucose 92 mg/dL (83-110); Potassium 3.5 mmol/L (3.5-5.1); Sodium 134 mmol/L (136-145)
[2019-04-11 05:22] LABS: Band 6 % (5-11); Eosinophils 3 % (0-10); Hypochromia SLIGHT = 6-15 cells (100X) (0-5/hpf); Lymphocytes 9 % (21-51); MDiff Complete? YES; Mean Corpuscular HGB CONC 32.6 g/dL (32.0-36.0); Mean Corpuscular Hemoglobin 29.6 pg (27.0-31.0); Mean Platelet Volume 7.4 fL (7.4-10.4); Monocytes 6 % (0-10); Neutrophil 76 % (42-75); Platelet Count 147 thou/uL (130-400); Platelet Morphology Comment Appears Adequate; RBC Distribution Width 12.7 % (11.5-14.5); Red Blood Cell (RBC) Count 3.05 mill/uL (4.70-6.10)
[2019-04-11] MEDS ORDERED: Furosemide 40 MG/4 ML VIAL SLOW IVP SCH ×2 (06:00→06:30)
[2019-04-11] MEDS: Potassium Chloride 20 MEQ/100 ML PREMIX BAG IVPB PRN (06:06)
[2019-04-11] MEDS: Amiodarone 450 MG, Admixture Fee 1 EACH in Dextrose 5% in Water 250 ML IVPB SCH (07:56)
[2019-04-11] MEDS: Ezetimibe 10 MG TAB PO SCH (09:19)
[2019-04-11] MEDS: predniSONE 5 MG TAB PO SCH (09:19)
[2019-04-11] MEDS: Aspirin 325 MG TAB PO SCH (09:19)
[2019-04-11] MEDS: Carvedilol 3.125 MG TAB PO SCH ×2 (09:19→18:11)
[2019-04-11] MEDS: Cyanocobalamin (Vitamin B-12) 1,000 MCG TAB PO SCH (09:19)
[2019-04-11] MEDS: Famotidine/PF 20 mg/2ml Vial SLOW IVP SCH ×2 (09:20→21:00)
--- NOTE | 2019-04-11 10:06 | CON ---
DATE OF CONSULTATION: 04/11/2019 HISTORY OF PRESENT ILLNESS: The patient has been in the hospital since 04/05/2019, consulted today on 04/11/2019 because he is in the ICU. He is in atrial fibrillation and on amiodarone drip. He was on Levophed 1 time. Events are outlined extensively by Dr. Lewis. The patient was scheduled to have left shoulder surgery prior, prior to that he got cardiac clearance. He was found to have severe aortic stenosis as well as cardiomyopathy, which got better with time. He is status post aortic valve replacement surgery and single-vessel bypass surgery. He denies any cough, chest pain, wheezing, orthopnea, PND. He does not smoke. PAST MEDICAL HISTORY: Otherwise, pertinent for arthritis, apparently vasculitis, high cholesterol, neuropathy, aortic stenosis, and cardiomyopathy. HOME MEDICATIONS: Include eye drops for glaucoma. Apparently, he takes prednisone, Flomax, niacin, Flonase, Zetia, Repatha, Coreg, aspirin. SOCIAL AND FAMILY HISTORY: Otherwise, unremarkable. REVIEW OF SYSTEMS: Otherwise, 10-point negative. PHYSICAL EXAMINATION: GENERAL: In no distress, on Cordarone drip. VITAL SIGNS: Pulse 76, blood pressure 110/60, saturations are 96% on room air, respiratory rate 16. CHEST: No wheezing or crackles. CARDIAC: Normal S1 and S2. No gallops. ABDOMEN: No masses. LABORATORY DATA: White count 8000. Lytes are normal. Chest x-ray this morning shows a small right-sided infiltrate and effusion. ASSESSMENT AND PLAN: 1. Status post aortic stenosis. 2. Status post bypass. 3. Small right pleural effusion. 4. Nonsmoker. Pulmonary rodarte, continue to observe in the ICU. No specific treatment from Pulmonary standpoint of view at this stage. He will be switched over to oral medication for his atrial fibrillation and he will be transferred out of the ICU. This is a consultation note, 70 minutes, 50% direct patient care. Job ID: [id number]
[2019-04-11] MEDS ORDERED: Amiodarone 200 MG TAB PO SCH (11:45)
[2019-04-11] MEDS: Fluticasone Propionate Nasal Spray 16 gm Bottle NASAL SCH (19:27)
[2019-04-11] MEDS: Amiodarone 200 MG TAB PO SCH (21:22)
[2019-04-11] MEDS: Latanoprost 0.005% Ophth Soln 2.5 ml Bottle EA EYE SCH (21:23)
[2019-04-11] MEDS: Tamsulosin HCl 0.4 MG CAP PO SCH (21:23)
[2019-04-12 05:06] LABS: Anion Gap 12 mmol/L (10-20); BUN (Urea Nitrogen) 24 mg/dL (8.4-25.7); Calc. Creatinine Clearance 61 mL/min (70-130); Calcium 9.7 mg/dL (7.8-10.44); Carbon Dioxide 25 mmol/L (23-31); Chloride 101 mmol/L (98-107); Estimated GFR-MDRD 61; Glucose 94 mg/dL (83-110); Potassium 3.7 mmol/L (3.5-5.1); Sodium 134 mmol/L (136-145)
[2019-04-12 05:20] LABS: Hemoglobin 10.4 g/dL (14.0-18.0); Mean Corpuscular HGB CONC 32.8 g/dL (32.0-36.0); Mean Corpuscular Volume 91.5 fL (78.0-98.0); Mean Platelet Volume 7.1 fL (7.4-10.4); Platelet Count 199 thou/uL (130-400); RBC Distribution Width 12.8 % (11.5-14.5); Red Blood Cell (RBC) Count 3.47 mill/uL (4.70-6.10)
[2019-04-12 05:21] LABS: Eosinophils 5 % (0-10); Lymphocytes 26 % (21-51); MDiff Complete? YES; Monocytes 7 % (0-10); Neutrophil 62 % (42-75); Platelet Morphology Comment Appears Adequate
[2019-04-12] MEDS: Potassium Chloride 20 MEQ/100 ML PREMIX BAG IVPB PRN (06:24)
[2019-04-12] MEDS: Cyanocobalamin (Vitamin B-12) 1,000 MCG TAB PO SCH (07:29)
[2019-04-12] MEDS: Amiodarone 200 MG TAB PO SCH ×4 (07:30→21:14)
[2019-04-12] MEDS: Aspirin 325 MG TAB PO SCH (07:30)
[2019-04-12] MEDS: Carvedilol 3.125 MG TAB PO SCH ×2 (07:30→17:55)
[2019-04-12] MEDS: predniSONE 5 MG TAB PO SCH (07:31)
[2019-04-12] MEDS: Famotidine/PF 20 mg/2ml Vial SLOW IVP SCH (07:31)
[2019-04-12] MEDS: Ezetimibe 10 MG TAB PO SCH (07:31)
[2019-04-12] MEDS: Fluticasone Propionate Nasal Spray 16 gm Bottle NASAL SCH (07:32)
[2019-04-12] MEDS ORDERED: Aspirin 325 mg Enteric Coated Tablet PO SCH (09:00)
[2019-04-12] MEDS ORDERED: Bisacodyl 5 MG TAB PO PRN (09:02)
[2019-04-12] MEDS ORDERED: Mag-Al 1200 mg/1200 mg/30 ML UDCUP PO PRN (09:02)
[2019-04-12] MEDS ORDERED: Mineral Oil ENEMA PR PRN (09:02)
[2019-04-12] MEDS ORDERED: Guaifenesin DM 100-10/5 ML UDCUP PO PRN (09:02)
[2019-04-12] MEDS ORDERED: Bisacodyl 10 MG SUPP PR PRN (09:02)
[2019-04-12] MEDS ORDERED: diphenhydrAMINE 25 MG CAP PO PRN (09:02)
[2019-04-12] MEDS ORDERED: Artificial Tears 18 DROP/0.9 ML EA EYE PRN (09:02)
[2019-04-12] MEDS ORDERED: Nitroglycerin 0.4 MG TAB (25 Tab Bottle) SL PRN (09:02)
[2019-04-12] MEDS ORDERED: Zolpidem Tartrate 5 MG TAB PO PRN (09:02)
--- NOTE | 2019-04-12 09:08 | PRG ---
DATE OF SERVICE: 04/12/2019 SUBJECTIVE: Nicolas Barr, this morning, is awake, alert, and responsive. Minimal chest pain. No shortness of breath. OBJECTIVE: VITAL SIGNS: Temperature 98, pulse 75, blood pressure 118/75, and respirations 18. CHEST: No wheezing or crackles. CARDIAC: Normal S1 and S2. No gallops. LABORATORY DATA: White count is normal, H and H are unremarkable, and platelet count normal. Lytes are normal. ASSESSMENT: 1. Status post coronary artery bypass grafting. 2. Atrial fibrillation. PLAN: Pulmonary Critical Care will follow while in the ICU, appears to be stable. He is now on p.o. medication for his AFib, PT, supportive care. Job ID: [id number]
[2019-04-12 12:23] LABS: Actual Bicarbonate (HCO3a) 19.9 mEq/L (22-28); Analyzer IN Cardio OR; Base Excess (BEa) -4.4 mEq/L (-2.0 to +3.0); CO2 Tension 33.6 mmHg (35.0-45.0); Calcium, Ionized 1.07 mmol/L (1.12-1.30); Carboxyhemoglobin (COHb) 0.6 gm% (0.0-3.0); Hemoglobin (Hb) 9.6 g/dL (14.0-18.0); O2 Tension (PaO2) 364.5 mmHg (> 60.0); Potassium - ABG Lab 3.81 mmol/L (3.70-5.30); pH, Arterial 7.39 (7.35-7.45)
[2019-04-12 12:30] LABS: Puncture Site ALINE
[2019-04-12 12:35] LABS: Actual Bicarbonate (HCO3a) 24.5 mEq/L (22-28); Analyzer IN Cardio OR; Base Excess (BEa) -0.9 mEq/L (-2.0 to +3.0); CO2 Tension 43.9 mmHg (35.0-45.0); Calcium, Ionized 1.05 mmol/L (1.12-1.30); Carboxyhemoglobin (COHb) 0.6 gm% (0.0-3.0); O2 Tension (PaO2) 408.3 mmHg (> 60.0); Potassium - ABG Lab 4.54 mmol/L (3.70-5.30); pH, Arterial 7.36 (7.35-7.45)
[2019-04-12 12:35] LABS: Actual Bicarbonate (HCO3a) 23.1 mEq/L (22-28); Analyzer IN Cardio OR; Base Excess (BEa) -1.9 mEq/L (-2.0 to +3.0); CO2 Tension 40.4 mmHg (35.0-45.0); Calcium, Ionized 1.06 mmol/L (1.12-1.30); O2 Tension (PaO2) 445.5 mmHg (> 60.0); Potassium - ABG Lab 4.28 mmol/L (3.70-5.30); pH, Arterial 7.38 (7.35-7.45)
[2019-04-12 12:36] LABS: Analyzer IN Cardio OR; Base Excess (BEa) -0.9 mEq/L (-2.0 to +3.0); CO2 Tension 40.8 mmHg (35.0-45.0); Calcium, Ionized 1.01 mmol/L (1.12-1.30); Carboxyhemoglobin (COHb) 0.3 gm% (0.0-3.0); Hemoglobin (Hb) 8.4 g/dL (14.0-18.0); Potassium - ABG Lab 4.79 mmol/L (3.70-5.30); pH, Arterial 7.39 (7.35-7.45)
[2019-04-12 12:36] LABS: Actual Bicarbonate (HCO3v) 25 mEq/L (22-28); Analyzer IN Cardio OR; Base Excess -0.9 mEq/L (-2.0 to +3.0); Calcium, Ionized 1.05 mmol/L (1.16-1.32); Chloride (ABG LAB) 107 mmol/L (98-106); Potassium - ABG Lab 4.27 mmol/L (3.70-5.30); Sodium 135.7 mmol/L (133-146); pH (venous) 7.34 (7.32-7.43)
[2019-04-12 12:37] LABS: Actual Bicarbonate (HCO3a) 20.9 mEq/L (22-28); Analyzer IN Cardio OR; Base Excess (BEa) -2.6 mEq/L (-2.0 to +3.0); Calcium, Ionized 1.18 mmol/L (1.12-1.30); Carboxyhemoglobin (COHb) 0.3 gm% (0.0-3.0); Hemoglobin (Hb) 11.2 g/dL (14.0-18.0); O2 Tension (PaO2) 313.5 mmHg (> 60.0); Potassium - ABG Lab 3.74 mmol/L (3.70-5.30); Puncture Site ALINE; pH, Arterial 7.43 (7.35-7.45)
[2019-04-12 12:38] LABS: O2 Tension (PaO2) 547.1 mmHg (> 60.0); Puncture Site ALINE
[2019-04-12 12:39] LABS: Puncture Site ALINE
[2019-04-12 12:40] LABS: Puncture Site ALINE
[2019-04-12] MEDS: Latanoprost 0.005% Ophth Soln 2.5 ml Bottle EA EYE SCH (21:14)
[2019-04-12] MEDS: Tamsulosin HCl 0.4 MG CAP PO SCH (21:14)
[2019-04-13] MEDS ORDERED: Amiodarone 200 MG TAB PO SCH (08:03)
[2019-04-13] MEDS: Ezetimibe 10 MG TAB PO SCH (08:30)
[2019-04-13] MEDS: Fluticasone Propionate Nasal Spray 16 gm Bottle NASAL SCH (08:31)
[2019-04-13] MEDS: Carvedilol 3.125 MG TAB PO SCH ×2 (08:31→17:32)
[2019-04-13] MEDS: predniSONE 5 MG TAB PO SCH (08:31)
[2019-04-13] MEDS: Cyanocobalamin (Vitamin B-12) 1,000 MCG TAB PO SCH (08:31)
[2019-04-13] MEDS: PROBIOTIC PO SCH (08:32)
[2019-04-13] MEDS: Aspirin 81 mg Enteric Coated Tablet PO SCH (09:24)
[2019-04-13] MEDS: Amiodarone 200 MG TAB PO SCH ×3 (09:24→20:29)
[2019-04-13] MEDS: Apixaban 5 MG TAB PO SCH ×2 (09:24→20:28)
[2019-04-13 11:51] VITALS: BMI 26.6
--- NOTE | 2019-04-13 16:53 | EKG ---
Test Reason : Blood Pressure : / mmHG Vent. Rate : 099 BPM Atrial Rate : 107 BPM P-R Int : 000 ms QRS Dur : 096 ms QT Int : 388 ms P-R-T Axes : 000 -18 076 degrees QTc Int : 497 ms Atrial fibrillation Prolonged QT Nonspecific ST-T changes Abnormal ECG Confirmed by DR. Latisha BARRETT ([id number]) on 04/13/2019 4:53:04 PM Referred By: RUSS Confirmed By:DR. Latisha BARRETT
[2019-04-13] MEDS: Latanoprost 0.005% Ophth Soln 2.5 ml Bottle EA EYE SCH (20:28)
[2019-04-13] MEDS: Tamsulosin HCl 0.4 MG CAP PO SCH (20:28)
[2019-04-13] MEDS: Acetaminophen 325 MG TAB PO PRN (20:29)
[2019-04-14 03:44] LABS: Hemoglobin 9.2 g/dL (14.0-18.0); Platelet Count 230 thou/uL (130-400)
[2019-04-14] MEDS: Ezetimibe 10 MG TAB PO SCH (09:15)
[2019-04-14] MEDS: Carvedilol 3.125 MG TAB PO SCH (09:15)
[2019-04-14] MEDS: predniSONE 5 MG TAB PO SCH (09:15)
[2019-04-14] MEDS: Cyanocobalamin (Vitamin B-12) 1,000 MCG TAB PO SCH (09:16)
[2019-04-14] MEDS: Apixaban 5 MG TAB PO SCH (09:16)
[2019-04-14] MEDS: Aspirin 81 mg Enteric Coated Tablet PO SCH (09:16)
[2019-04-14] MEDS: Amiodarone 200 MG TAB PO SCH ×2 (09:16→15:38)
[2019-04-14] MEDS: Fluticasone Propionate Nasal Spray 16 gm Bottle NASAL SCH (09:17)
[2019-04-14] MEDS: PROBIOTIC PO SCH (09:17)
[2019-04-14 12:46] VITALS: BP 106/60; TEMP 98.2
--- NOTE | 2019-04-17 08:52 | DIS ---
DATE OF ADMISSION: 04/05/2019 DATE OF DISCHARGE: 04/14/2019 HOSPITAL COURSE: The patient was admitted by Dr. Lewis on 04/06, for elective cardiac catheterization. He has been cleared for left shoulder surgery. He had long-standing history of aortic stenosis and had a recent echocardiogram showing a preserved left ventricular function with a gradient of over 100 across his aortic valve. He underwent cardiac catheterization, which showed right coronary stenosis, but otherwise no coronary lesions. He was taken to the operating room, underwent aortic valve replacement with a #23 Magna bioprosthetic valve and single vein graft bypass to his distal right coronary artery. Postoperatively, he did well. He had one bout of atrial fibrillation, which was controlled with amiodarone. He was anticoagulated subsequently with Eliquis 2.5 mg b.i.d. At the time of discharge, he is ambulatory, tolerating regular diet, having good bowel and bladder function. DISCHARGE MEDICATIONS: Noted on his MAR. FOLLOWUP: He will follow up with me in [address] Lewis in a month. He is being sent to rehab for further strengthening prior to going home. Job ID: [id number]
[2019-04-19] MEDS ORDERED: Amiodarone 200 MG TAB PO SCH (09:00)
[2019-05-03] MEDS ORDERED: Amiodarone 200 MG TAB PO SCH (09:00)
[2019-05-17] MEDS ORDERED: Amiodarone 200 MG TAB PO SCH (09:00)
== END 2019-04-14 15:42 | DRG 217 ==
LOC: CCL 05:46 → 2NO 18:47 → CCU 04-07 08:15 → 2NO 04-12 18:28
PROVIDERS: ADMIT Internal Medicine Cardiovascular Disease; ATTEND Internal Medicine Cardiovascular Disease
PROC: 4A023N8 Measurement of Cardiac Sampling and Pressure, Bilateral, Percutaneous Approach (ICD-10-PCS; 2019-04-05)
PROC: B2111ZZ Fluoroscopy of Multiple Coronary Arteries using Low Osmolar Contrast (ICD-10-PCS; 2019-04-05)
PROC: B3101ZZ Fluoroscopy of Thoracic Aorta using Low Osmolar Contrast (ICD-10-PCS; 2019-04-05)
PROC: 021009W Bypass Coronary Artery, One Artery from Aorta with Autologous Venous Tissue, Open Approach (ICD-10-PCS; principal; 2019-04-07)
PROC: 02RF08Z Replacement of Aortic Valve with Zooplastic Tissue, Open Approach (ICD-10-PCS; 2019-04-07)
PROC: 5A1221Z Performance of Cardiac Output, Continuous (ICD-10-PCS; 2019-04-07)
PROC: 30233R1 Transfusion of Nonautologous Platelets into Peripheral Vein, Percutaneous Approach (ICD-10-PCS; 2019-04-07)
PROC: 30233N1 Transfusion of Nonautologous Red Blood Cells into Peripheral Vein, Percutaneous Approach (ICD-10-PCS; 2019-04-07)
DX: I35.0 Nonrheumatic aortic (valve) stenosis (principal); I42.9 Cardiomyopathy, unspecified; J90 Pleural effusion, not elsewhere classified; I25.10 Atherosclerotic heart disease of native coronary artery without angina pectoris; I77.6 Arteritis, unspecified; I34.0 Nonrheumatic mitral (valve) insufficiency; Z96.642 Presence of left artificial hip joint; I10 Essential (primary) hypertension; E78.5 Hyperlipidemia, unspecified; I48.91 Unspecified atrial fibrillation; G62.9 Polyneuropathy, unspecified
CPT/HCPCS: 36415; 36416; 36430; 71045; 71275; 76000; 80048; 82565; 82805; 82947; 85014; 85018; 85025; 85049; 85347; 85610; 85730; 86850; 86900; 86901; 93005; 93010; 93460; 93561; 93567; 93798; 94002; 94150; 99152; 99153; C1769; J0282; J0670; J0690; J1100; J1160; J1642; J1644; J1720; J1815; J1885; J1940; J2001; J2150; J2250; J2370; J2405; J2440; J2720; J3010; J3370; J3475; J3480; J3490; J7050; J7070; J7512; P9016; P9035; P9045; Q9967; S0017; S0028

== ENCOUNTER 2019-05-31 12:54 | Outpatient (CLI) | payer MEDICARE, BC ==
--- NOTE | 2019-05-31 13:20 | RAD ---
EXAM: Chest 2 views: HISTORY: Atherosclerosis of coronary artery with stable angina COMPARISON: 04/10/2019 FINDINGS: Postop midline sternotomy. Status post aortic valve replacement. Heart size:Within normal limits. Lungs:Clear of acute process. Atherosclerotic changes of the aorta. No confluent pneumonia, overt edema, pleural effusion, pneumothorax, or other significant acute proce ss. IMPRESSION: Atherosclerosis of the aorta. No acute intrathoracic disease.
== END 2019-05-31 12:55 | disposition home or self-care (01) ==
LOC: RAD 12:54
PROVIDERS: ATTEND Thoracic Surgery (Cardiothoracic Vascular Surgery)
DX: I25.118 Atherosclerotic heart disease of native coronary artery with other forms of angina pectoris (principal); I70.0 Atherosclerosis of aorta
CPT/HCPCS: 71046

== ENCOUNTER 2019-07-25 12:50 | Emergency (ER) | payer MEDICARE, BC ==
[2019-07-25 14:34] LABS: #Basophils 0.1 thou/uL (0.0-0.2); #Eosinphils 0.2 thou/uL (0.0-0.7); #Lymphocytes 0.9 thou/uL (1.20-3.40); #Monocytes 0.9 thou/uL (0.11-0.59); #Neutrophils 4.9 thou/uL (1.40-6.50); %Basophils 0.9 % (0.0-1.0); %Eosinophils 2.4 % (0.0-10.0); %Lymphocytes 13.6 % (21.0-51.0); %Monocytes 12.4 % (0.0-10.0); %Neutrophils 70.7 % (42.0-75.0); Mean Corpuscular HGB CONC 33.9 g/dL (32.0-36.0); Mean Corpuscular Hemoglobin 29.9 pg (27.0-31.0); Mean Corpuscular Volume 88.3 fL (78.0-98.0); Mean Platelet Volume 6.5 fL (7.4-10.4); Platelet Count 225 thou/uL (130-400); RBC Distribution Width 12.1 % (11.5-14.5); Red Blood Cell (RBC) Count 4.36 mill/uL (4.70-6.10); White Blood Cell (WBC) Count 6.9 thou/uL (4.8-10.8)
[2019-07-25 14:57] LABS: ALT (SGPT) 24 U/L (8-55); AST (SGOT) 21 U/L (5-34); Albumin 4.3 g/dL (3.4-4.8); Alkaline Phosphatase 53 U/L (40-110); Anion Gap 8 mmol/L (10-20); BUN (Urea Nitrogen) 18 mg/dL (8.4-25.7); Bilirubin, Total 0.4 mg/dL (0.2-1.2); Calc. Creatinine Clearance 0 mL/min (70-130); Calcium 9.7 mg/dL (7.8-10.44); Carbon Dioxide 28 mmol/L (23-31); Chloride 106 mmol/L (98-107); Estimated GFR-MDRD 44; Globulin 3.1 g/dL (2.4-3.5); Glucose 144 mg/dL (83-110); Potassium 4.8 mmol/L (3.5-5.1); Protein, Total 7.4 g/dL (5.8-8.1); Sodium 137 mmol/L (136-145)
[2019-07-25] MEDS ORDERED: Ketorolac Tromethamine 30 MG/ML VIAL ONE (15:53)
--- NOTE | 2019-07-25 16:21 | RAD ---
XR Shoulder Lt 3 View STANDARD: 07/25/2019 2:16 PM CLINICAL INDICATION: Injury COMPARISON: 09/20/2017 FINDINGS: Fracture:No fracture. Arthropathy:Moderate osteoarthritis, with high riding left humeral head. Incidental findings:None of significance. IMPRESSION: 1. No acute osseous abnormality.
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
[2019-07-25] MEDS ORDERED: Dexamethasone 4 mg/ml Vial ONE (16:30)
== END 2019-07-25 16:56 | disposition home or self-care (01) ==
LOC: ERS 12:50
DX: S43.402A Unspecified sprain of left shoulder joint, initial encounter (principal); I10 Essential (primary) hypertension; E78.5 Hyperlipidemia, unspecified; E78.00 Pure hypercholesterolemia, unspecified; V89.2XXA Person injured in unspecified motor-vehicle accident, traffic, initial encounter
CPT/HCPCS: 36415; 71046; 80053; 84484; 85025; 93005; 94760; 96372; J1100; J1885

== ENCOUNTER 2020-09-09 13:51 | Outpatient (CLI) | payer MEDICARE, BC ==
--- NOTE | 2020-09-09 14:16 | RAD ---
XR Chest Pa Lat STANDARD HISTORY: Atrial fibrillation COMPARISON: 07/25/2019 FINDINGS: The heart size is normal. Changes of median sternotomy are again seen. The aorta is tortuou s. The lungs are well expanded without focal areas of consolidation, pneumothorax or pleural effusions. IMPRESSION: No radiographic evidence of acute cardiopulmonary process.
== END 2020-09-09 13:52 | disposition home or self-care (01) ==
LOC: BICRAD 13:51
PROVIDERS: ATTEND Nurse Practitioner Family
DX: I48.91 Unspecified atrial fibrillation (principal)
CPT/HCPCS: 71046

== ENCOUNTER 2021-06-12 09:56 | Outpatient (CLI) | payer MEDICARE, BC | END 2021-06-12 09:57 | disposition home or self-care (01) | LOC: BICCT 09:56 | PROVIDERS: ATTEND Surgery | DX: R18.8 Other ascites (principal); K42.9 Umbilical hernia without obstruction or gangrene | CPT/HCPCS: 74177; 82565 ==

== ENCOUNTER 2021-07-22 13:09 | Emergency (ER) | payer MEDICARE, BC ==
[2021-07-22 13:43] LABS: Bilirubin Negative (Negative); Blood, Urine Negative (Negative); Clarity Clear (Clear); Glucose, Urine (Dipstick) Normal (Negative); Ketone, Urine Negative (Negative); Leukocyte Negative Leu/uL (Negative); Nitrite Negative (Negative); Protein, Urine (Dipstick) Negative (Neg-Trace); Specific Gravity, Urine 1.008 (1.002-1.036); Urobilinogen Normal mg/dL (Less than 2)
[2021-07-22 13:48] LABS: #Eosinphils 0.2 thou/uL (0.0-0.7); #Lymphocytes 1.3 thou/uL (1.20-3.40); #Monocytes 0.9 thou/uL (0.11-0.59); #Neutrophils 4.6 thou/uL (1.40-6.50); %Basophils 0.7 % (0.0-1.0); %Eosinophils 3.5 % (0.0-10.0); %Lymphocytes 18.1 % (21.0-51.0); %Monocytes 12.7 % (0.0-10.0); %Neutrophils 65.1 % (42.0-75.0); Hemoglobin 11.7 g/dL (14.0-18.0); Mean Corpuscular HGB CONC 33.4 g/dL (32.0-36.0); Mean Corpuscular Hemoglobin 31.5 pg (27.0-31.0); Mean Corpuscular Volume 94.1 fL (78.0-98.0); Mean Platelet Volume 6.4 fL (7.4-10.4); Platelet Count 207 thou/uL (130-400); RBC Distribution Width 11.5 % (11.5-14.5); Red Blood Cell (RBC) Count 3.73 mill/uL (4.70-6.10)
[2021-07-22 13:58] LABS: INR-International Normal Ratio 1.1; Prothrombin Time 14.3 sec (12.0-14.7)
[2021-07-22 14:09] LABS: ALT (SGPT) 14 U/L (8-55); AST (SGOT) 18 U/L (5-34); Alkaline Phosphatase 48 U/L (40-110); Anion Gap 13 mmol/L (10-20); BUN (Urea Nitrogen) 16 mg/dL (8.4-25.7); Bilirubin, Total 0.7 mg/dL (0.2-1.2); Calc. Creatinine Clearance 0 mL/min (70-130); Calcium 9.4 mg/dL (7.8-10.44); Carbon Dioxide 24 mmol/L (23-31); Chloride 104 mmol/L (98-107); Glucose 105 mg/dL (83-110); Potassium 4.4 mmol/L (3.5-5.1); Sodium 137 mmol/L (136-145)
[2021-07-22] MEDS ORDERED: Fentanyl 100 MCG/2 ML VIAL ONE ×2 (14:57→16:42)
[2021-07-22] MEDS ORDERED: Boostrix 0.5 ML (Tdap) VIAL ONE (15:27)
[2021-07-22] MEDS ORDERED: Lidocaine 1% w/Epinephrine 1:100K 20 ML VIAL ONE (15:27)
[2021-07-22] MEDS ORDERED: CEFAZOLIN 2 GM, Admixture Fee 1 EACH in Sodium Chloride 0.9% 100 ML IVPB SCH (17:00)
== END 2021-07-22 19:08 | disposition short-term general hospital (02) ==
LOC: ERS 13:09
DX: S32.019A Unspecified fracture of first lumbar vertebra, initial encounter for closed fracture (principal); S12.110A Anterior displaced Type II dens fracture, initial encounter for closed fracture; S12.031A Nondisplaced posterior arch fracture of first cervical vertebra, initial encounter for closed fracture; S01.01XA Laceration without foreign body of scalp, initial encounter; E78.00 Pure hypercholesterolemia, unspecified; E78.5 Hyperlipidemia, unspecified; Z23 Encounter for immunization; W01.198A Fall on same level from slipping, tripping and stumbling with subsequent striking against other object, initial encounter; Y93.01 Activity, walking, marching and hiking; Y92.009 Unspecified place in unspecified non-institutional (private) residence as the place of occurrence of the external cause
CPT/HCPCS: 36415; 70450; 71045; 72125; 72128; 72131; 80053; 81003; 84484; 85025; 85610; 85730; 90471; 90715; 93005; 96365; 96375; 96376; J0690; J3010; J3490